=== PATIENT | female | born 1995 | race Caucasian/White ===

== ENCOUNTER 2017-04-03 05:02 | Emergency (ER) | payer BC, MEDICARE | END 2017-04-03 05:45 | disposition home or self-care (01) | LOC: ER 05:02 | DX: H10.32 Unspecified acute conjunctivitis, left eye (principal); F32.9 Major depressive disorder, single episode, unspecified; F41.9 Anxiety disorder, unspecified; Z79.899 Other long term (current) drug therapy ==